=== PATIENT | female | born 1990 | race Two or more races ===

== ENCOUNTER 2020-11-18 11:22 | Emergency (ER) | payer MEDICAID ==
[~2020-11-18] VITALS: Ht 154.9 cm; Wt 81.9 kg
--- NOTE | 2020-11-18 12:17 | NUR ---
DIRECTOR OF DIETARY: PT TO ROOM FROM [facility]
[2020-11-18 12:40] VITALS: BP 106/60
--- NOTE | 2020-11-18 12:41 | NUR ---
FIRST CONTACT: 3 WEEKS PREG, ABD PAIN, HOT FLASHES 3-2-0. PT POSTIONED TO COMFORT IN BED. ATTACHED TO MONITORS. VSS. KAROL. FAMILY AT BEDSIDE.
[2020-11-18] MEDS ORDERED: INSULIN LISPRO SINGLE DOSE, ER SQ-INSULIN ONE (12:59)
[2020-11-18] MEDS ORDERED: FAMOTIDINE 20 MG TABLET ONE (13:00)
[2020-11-18] MEDS ORDERED: ACETAMINOPHEN 325 MG TABLET PO ONE (13:00)
[2020-11-18] MEDS ORDERED: FAMOTIDINE 20 MG TABLET PO ONE (13:00)
[2020-11-18] MEDS ORDERED: ACETAMINOPHEN 325 MG TABLET ONE (13:00)
[2020-11-18 13:01] LABS: MICROSCOPIC INDICATED
[2020-11-18 13:13] LABS: BASOPHILS % (AUTO) 1 % (0-1); EOSINOPHILS % (AUTO) 2 % (1-7); LYMPHOCYTES % (AUTO) 31 % (22-44); MEAN CORPUSCULAR HEMOGLOBIN 25.9 pg (27.0-34.8); MEAN CORPUSCULAR HGB CONC 32.8 g/dL (32.4-35.8); MEAN PLATELET VOLUME 9.6 fL (7.4-10.4); MONOCYTES % (AUTO) 8 % (2-9); NEUTROPHILS % (AUTO) 58 % (42-75); PLATELET COUNT 220 x10^3/uL (130-400); RED BLOOD COUNT 4.57 x10^6/uL (3.82-5.3); RED CELL DISTRIBUTION WIDTH 15.4 % (9.6-15.2)
[2020-11-18 13:25] LABS: ANION GAP 8 mmol/L (5-15); CHLORIDE 104 mmol/L (98-107)
[2020-11-18 13:29] LABS: ALANINE AMINOTRANSFERASE 44 U/L (12-78); ALKALINE PHOSPHATASE 76 U/L (45-117); BILIRUBIN,TOTAL 0.3 mg/dL (0.2-1.0); CREATININE 0.55 mg/dL (0.55-1.02); TOTAL PROTEIN 7.8 g/dL (6.4-8.2)
--- NOTE | 2020-11-18 13:36 | NUR ---
TASK RN NOTE: PT SITTING UP IN BED WATCHING TELEVISION. NAD NOTED AT THIS TIME. RESPIRATIONS EVEN AND UNLABORED ON RA.
--- NOTE | 2020-11-18 14:22 | NUR ---
Patient given discharge instructions and they have confirmed that they understand the instructions. Patient ambulatory with steady gait. NAD, all questions answered appropriately, denies additional needs at this time. No personal belongings left in room after discharge.
== END 2020-11-18 14:43 | disposition home or self-care (01) ==
LOC: ED 14:24
DX: O23.11 Infections of bladder in pregnancy, first trimester (principal); R10.10 Upper abdominal pain, unspecified; Z3A.01 Less than 8 weeks gestation of pregnancy
CPT/HCPCS: 36415; 80053; 81001; 84702; 85025; 87086; 99283